=== PATIENT | male | born 1975 | race Native Hawaiian/Other Pacific Islander ===

== ENCOUNTER 2016-10-20 22:38 | Emergency (ER) | payer OTHER ==
[~2016-10-20] VITALS: Ht 175.3 cm; Wt 127.0 kg
== END 2016-10-21 01:48 | disposition home or self-care (01) ==
LOC: ED 22:38
DX: M25.552 Pain in left hip (principal); M25.562 Pain in left knee; W17.89XA Other fall from one level to another, initial encounter
CPT/HCPCS: 99283